=== PATIENT | female | born 2005 | race Caucasian/White ===

== ENCOUNTER 2024-05-02 07:32 | Emergency (ER) | payer MEDICAID ==
[~2024-05-02] VITALS: Ht 170.2 cm; Wt 83.0 kg
[2024-05-02 07:35] VITALS: O2SAT 100
[2024-05-02] MEDS ORDERED: CEFD300C3 MT (09:05)
[2024-05-02 09:21] VITALS: BP 129/84; PULSE 98; RESP 20; TEMP 98.1
== END 2024-05-02 09:31 | disposition home or self-care (01) ==
LOC: ER 07:32
DX: H61.001 Unspecified perichondritis of right external ear (principal)
CPT/HCPCS: 99283